=== PATIENT | male | born 2000 | race Caucasian/White ===

== ENCOUNTER 2021-09-22 15:37 | Inpatient (IN) | payer OTHER ==
[2021-09-22] MEDS ORDERED: MAG HYDROX/AL HYDROX/SIMETH 30 ML UNIT-DOSE CUP PO PRN (16:03)
[2021-09-22] MEDS ORDERED: ONDANSETRON *ODT* 4 MG TABLET SL PRN (16:03)
[2021-09-22] MEDS ORDERED: MAGNESIUM HYDROX 2400MG/30ML ORAL SUSPENSION 30 ML CUP PO PRN (16:03)
[2021-09-22] MEDS ORDERED: NICOTINE 10 MG CARTRIDGE (INHALER) IH PRN (16:03)
[2021-09-22] MEDS ORDERED: MENTHOL/PHENOL 1 EACH UD MM PRN (16:03)
[2021-09-22] MEDS ORDERED: METHOCARBAMOL 500 MG TABLET PO PRN (16:03)
[2021-09-22] MEDS ORDERED: IBUPROFEN 400 MG TABLET (FP) PO PRN (16:03)
[2021-09-22] MEDS ORDERED: ACETAMINOPHEN 325 MG TABLET (FP) PO PRN ×2 (16:03)
[2021-09-22] MEDS ORDERED: BISMUTH SUBSALICYLATE 524 MG/30 ML PO PRN (16:03)
[2021-09-22] MEDS ORDERED: LORazepam 1 MG TABLET PO PRN (16:03)
[2021-09-22] MEDS ORDERED: MAGNESIUM CITRATE 300 ML BOTTLE PO PRN (16:03)
[2021-09-22 17:09] VITALS: BMI 27.2
[2021-09-22] MEDS: hydrOXYzine PAMOATE 25 MG CAPSULE (FP) PO SCH ×2 (19:43→22:50)
[2021-09-22] MEDS: THIAMINE HCL 100 MG TABLET (FP) PO SCH (22:50)
[2021-09-22] MEDS: LORazepam 2 MG TABLET PO SCH (22:50)
[2021-09-22] MEDS: MELATONIN 5 MG TABLETS PO SCH (22:50)
[2021-09-23] MEDS: hydrOXYzine PAMOATE 25 MG CAPSULE (FP) PO SCH ×5 (06:01→22:36)
[2021-09-23] MEDS: LORazepam 2 MG TABLET PO SCH ×4 (06:01→22:38)
[2021-09-23] MEDS ORDERED: NICOTINE 14 MG/24 HOURS TOPICAL PATCH TD SCH (10:00)
[2021-09-23 10:28] LABS: HEMOGLOBIN 15.4 GM/dL (11.7-16.9); MCH 28.5 pg (25.7-33.7); MCHC 34.2 g/dl (32.0-35.9); MEAN CELL VOLUME 83.2 fl (80-96); MEAN PLT VOLUME 7.3 fl (7.5-11.1); PLATELET COUNT 234 10^3/uL (134-434); RBC 5.41 M/mm3 (4.00-5.60); RDW 12.9 % (11.9-15.9); WHITE BLOOD COUNT 6.4 K/mm3 (4.0-10.0)
[2021-09-23] MEDS: PRENATAL VITAMINS W/ FOLIC ACID TABLET (FP) PO SCH (10:30)
[2021-09-23 10:37] LABS: CALCIUM 9.3 mg/dL (8.5-10.1)
[2021-09-23 10:38] LABS: ALBUMIN 4.2 g/dl (3.4-5.0); BLOOD UREA NITROGEN 10.8 mg/dL (7-18)
[2021-09-23 10:41] LABS: CREATININE 0.8 mg/dL (0.55-1.3)
[2021-09-23] MEDS ORDERED: GABAPENTIN 100 MG CAPSULE PO ONE (12:11)
[2021-09-23] MEDS: amLODIPine BESYLATE 10 MG TABLET (FP) PO SCH (16:03)
[2021-09-23] MEDS: THIAMINE HCL 100 MG TABLET (FP) PO SCH (22:36)
[2021-09-23] MEDS: MELATONIN 5 MG TABLETS PO SCH (23:22)
[2021-09-24] MEDS: hydrOXYzine PAMOATE 25 MG CAPSULE (FP) PO SCH ×3 (06:08→13:22)
[2021-09-24] MEDS: LORazepam 1 MG TABLET PO SCH ×2 (06:08→11:46)
[2021-09-24] MEDS: PRENATAL VITAMINS W/ FOLIC ACID TABLET (FP) PO SCH (10:32)
[2021-09-24] MEDS: amLODIPine BESYLATE 10 MG TABLET (FP) PO SCH (10:32)
[2021-09-24 13:28] VITALS: BP 136/85; PULSE 100; TEMP 97.6
[2021-09-25] MEDS ORDERED: LORazepam 0.5 MG TABLET PO PRN
[2021-09-25] MEDS ORDERED: LORazepam 0.5 MG TABLET PO SCH (05:00)
[2021-09-26] MEDS ORDERED: LORazepam 0.5 MG TABLET PO ONE (05:00)
== END 2021-09-24 13:27 | disposition left against medical advice (07) | DRG 770 ==
LOC: YASAS 15:37 → Y6N 17:46
PROVIDERS: ADMIT Allergy & Immunology; ATTEND Allergy & Immunology
PROC: HZ2ZZZZ Detoxification Services for Substance Abuse Treatment (ICD-10-PCS; principal; 2021-09-22)
DX: F10.230 Alcohol dependence with withdrawal, uncomplicated (principal); F40.10 Social phobia, unspecified; F32.A Depression, unspecified; K74.60 Unspecified cirrhosis of liver
CPT/HCPCS: 36415; 80053; 85027; 86780; 93005; 93010; C9803; U0003; U0005